=== PATIENT | male | born 1950 | race Caucasian/White ===

== ENCOUNTER 2020-01-30 16:47 | Emergency (ER) | payer OTHER ==
[2020-01-30] MEDS ORDERED: Ketorolac 60 MG/2 ML SDV IM ONE (17:52)
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
== END 2020-01-30 18:31 | disposition home or self-care (01) ==
LOC: JP.ED 16:47
DX: S16.1XXA Strain of muscle, fascia and tendon at neck level, initial encounter (principal); S20.212A Contusion of left front wall of thorax, initial encounter; I10 Essential (primary) hypertension; E78.00 Pure hypercholesterolemia, unspecified; Z98.890 Other specified postprocedural states; Z79.899 Other long term (current) drug therapy; V89.0XXA Person injured in unspecified motor-vehicle accident, nontraffic, initial encounter
CPT/HCPCS: 72125; 96372; 99284; J1885; 99283